=== PATIENT | female | born 1990 | race Caucasian/White ===

== ENCOUNTER 2022-08-21 13:36 | Inpatient (IN) | payer BC, OTHER ==
[2022-08-21] MEDS ORDERED: Nalbuphine HCl 10 MG/ 1ML Amp IVPUSH PRN (14:53)
[2022-08-21] MEDS ORDERED: Sodium Chloride 0.9% 10 ML Syringe FLUSH PRN (14:53)
[2022-08-21] MEDS ORDERED: Ondansetron 4 MG/2 ML SDV IVPUSH PRN (14:53)
[2022-08-21] MEDS ORDERED: Oxytocin/Lactated Ringers 10 UNIT/1,000 ML BAG IV SCH (15:00)
[2022-08-21] MEDS ORDERED: ceFAZolin 2 GM in Sodium Chloride 0.9% 50 ML IV ONE (15:15)
[2022-08-21] MEDS: Lactated Ringers 1,000 ML IV SCH ×2 (16:35→22:52)
[2022-08-21] MEDS: Oxytocin/Lactated Ringers 10 UNIT/1,000 ML BAG IV SCH (17:00)
[2022-08-22] MEDS ORDERED: Bupivacaine 0.25% 10 ML SDV ONE
[2022-08-22] MEDS: ceFAZolin 1 GM in Sodium Chloride 0.9% 50 ML IV SCH ×2 (00:24→09:25)
[2022-08-22] MEDS: Lactated Ringers 1,000 ML IV SCH ×2 (03:28→05:00)
[2022-08-22] MEDS ORDERED: Bupivacaine/fentaNYL/NS 100 ML Bag EPIDUR PRN (03:46)
[2022-08-22] MEDS ORDERED: ePHEDrine 50 MG/ML SDV IVPUSH PRN (03:46)
[2022-08-22] MEDS ORDERED: diphenhydrAMINE 50 MG/ML SDV IVPUSH PRN (03:46)
[2022-08-22] MEDS: fentaNYL 100 MCG/2 ML SDV EPIDUR PRN ×2 (04:09→04:24)
[2022-08-22] MEDS: Oxytocin/Lactated Ringers 10 UNIT/1,000 ML BAG IV SCH (07:17)
[2022-08-22] MEDS ORDERED: Docusate Sodium 100 MG Cap PO PRN (09:37)
[2022-08-22] MEDS ORDERED: Benzocaine/Menthol 20%-0.5% Spray 78 GM Cannister TOP PRN (09:37)
[2022-08-22] MEDS ORDERED: Witch Hazel Medicated Pads 40/Jar TOP PRN (09:37)
[2022-08-22] MEDS ORDERED: Acetaminophen 325 MG Tab PO PRN (09:37)
[2022-08-22] MEDS: Ibuprofen 600 MG Tab PO PRN ×2 (11:45→21:03)
[2022-08-22] MEDS: Sodium Chloride 0.9% 10 ML Syringe FLUSH SCH (12:22)
[2022-08-23] MEDS: Ibuprofen 600 MG Tab PO PRN (08:22)
[2022-08-23] MEDS ORDERED: Prenatal Multivitamin with Calcium/Folic Acid/Iron Tab PO SCH (09:00)
== END 2022-08-24 12:55 | disposition home or self-care (01) | DRG 560 ==
LOC: JD.OBCHECK 13:36 → JD.OB 13:38 → JD.OBCHECK 14:53 → JD.OB 08-22 07:48 → OBSVTOIN 08-22 09:29
PROVIDERS: ADMIT Obstetrics & Gynecology; ATTEND Obstetrics & Gynecology
PROC: 10E0XZZ Delivery of Products of Conception, External Approach (ICD-10-PCS; principal; 2022-08-22)
PROC: 0KQM0ZZ Repair Perineum Muscle, Open Approach (ICD-10-PCS; 2022-08-22)
PROC: 3E0R3BZ Introduction of Anesthetic Agent into Spinal Canal, Percutaneous Approach (ICD-10-PCS; 2022-08-22)
PROC: 00HU33Z Insertion of Infusion Device into Spinal Canal, Percutaneous Approach (ICD-10-PCS; 2022-08-22)
DX: O99.824 Streptococcus B carrier state complicating childbirth (principal); O99.284 Endocrine, nutritional and metabolic diseases complicating childbirth; O70.1 Second degree perineal laceration during delivery; Z37.0 Single live birth; E05.90 Thyrotoxicosis, unspecified without thyrotoxic crisis or storm; O99.62 Diseases of the digestive system complicating childbirth; K21.9 Gastro-esophageal reflux disease without esophagitis; Z3A.38 38 weeks gestation of pregnancy; Z88.0 Allergy status to penicillin; Z88.2 Allergy status to sulfonamides
CPT/HCPCS: 36415; 51701; 51702; 59025; 59409; 84112; 85025; 86592; A9270-GY; J0690; J2590; J3010; J3490; J7120

== ENCOUNTER 2024-03-13 17:11 | Inpatient (IN) | payer OTHER ==
[~2024-03-13 17:11] MED LIST: Bupivacaine 0.25% 10 ML SDV ONE
[2024-03-13] MEDS ORDERED: Ondansetron 4 MG/2 ML SDV IVPUSH PRN (18:48)
[2024-03-13] MEDS ORDERED: Lidocaine 1% 50 ML MDV INJECT PRN (18:48)
[2024-03-13] MEDS ORDERED: Nalbuphine 10 MG/ML Syringe IVPUSH PRN (18:48)
[2024-03-13] MEDS ORDERED: Oxytocin/Lactated Ringers 30 UNIT/500 ML BAG IV SCH (19:00)
[2024-03-13 19:17] LABS: BASOPHILS PERCENT AUTO 0.1 % (0.0-1.0); EOSINOPHILS ABSOLUTE AUTO 0.1 K/mm3 (0.0-0.4); EOSINOPHILS PERCENT AUTO 0.4 % (0.0-6.0); HEMOGLOBIN 12.8 gm/dl (12.0-16.0); IMMATURE GRAN ABSOLUTE AUTO 0.07 K/mm3 (0.00-0.05); IMMATURE GRAN PERCENT AUTO 0.6 % (0.0-0.4); LYMPHOCYTES ABSOLUTE AUTO 2.4 K/mm3 (1.0-4.8); LYMPHOCYTES PERCENT AUTO 19.5 % (24.0-44.0); MEAN CORPUSCULAR HEMOGLOBIN 29.3 pg (28.0-32.0); MEAN CORPUSCULAR HGB CONC 32.8 g/dl (32.0-36.0); MEAN CORPUSCULAR VOLUME 89.2 fl (83.0-99.0); MEAN PLATELET VOLUME 10.7 fl (9.4-12.3); MONOCYTES ABSOLUTE AUTO 0.9 K/mm3 (0.0-0.8); MONOCYTES PERCENT AUTO 7.6 % (0.0-8.0); NEUTROPHILS ABSOLUTE AUTO 8.8 K/mm3 (1.8-7.7); NEUTROPHILS PERCENT AUTO 71.8 % (41.0-71.0); PLATELET COUNT,PLT 261 K/mm3 (150-400); RED BLOOD CELL COUNT 4.37 M/mm3 (4.10-5.30); WHITE BLOOD CELL COUNT,WBC 12.23 K/mm3 (3.9-11.3)
[2024-03-13] MEDS ORDERED: ePHEDrine 50 MG/ML SDV IVPUSH PRN (20:01)
[2024-03-13] MEDS ORDERED: diphenhydrAMINE 50 MG/ML SDV IVPUSH PRN (20:01)
[2024-03-13] MEDS ORDERED: Calcium Carbonate 500 MG Tab.Chew PO PRN (20:23)
[2024-03-13] MEDS ORDERED: Acetaminophen 325 MG Tab PO PRN (20:23)
[2024-03-13] MEDS: Oxytocin/Lactated Ringers 30 UNIT/500 ML BAG IV SCH (20:55)
[2024-03-13] MEDS: Lactated Ringers 1,000 ML IV SCH (20:55)
[2024-03-14] MEDS: Bupivacaine/fentaNYL/NS 100 ML Bag EPIDUR PRN (00:42)
[2024-03-14] MEDS: fentaNYL 100 MCG/2 ML SDV EPIDUR PRN (00:43)
[2024-03-14] MEDS: Witch Hazel Medicated Pads 40/Jar TOP PRN (05:13)
[2024-03-14] MEDS: Benzocaine/Menthol 20%-0.5% Spray 78 GM Cannister TOP PRN (05:13)
[2024-03-14] MEDS: Acetaminophen 325 MG Tab PO SCH (05:35)
[2024-03-14] MEDS: Ibuprofen 600 MG Tab PO PRN (13:34)
== END 2024-03-15 14:30 | disposition home or self-care (01) | DRG 807 ==
LOC: JD.OBCHECK 17:11 → JD.OB 18:49 → OBSVTOIN 03-14 02:24 → JD.OB 03-14 02:25
PROVIDERS: ADMIT Obstetrics & Gynecology; ATTEND Obstetrics & Gynecology
PROC: 10E0XZZ Delivery of Products of Conception, External Approach (ICD-10-PCS; principal; 2024-03-14)
PROC: 0KQM0ZZ Repair Perineum Muscle, Open Approach (ICD-10-PCS; 2024-03-14)
PROC: 10907ZC Drainage of Amniotic Fluid, Therapeutic from Products of Conception, Via Natural or Artificial Opening (ICD-10-PCS; 2024-03-14)
PROC: 3E033VJ Introduction of Other Hormone into Peripheral Vein, Percutaneous Approach (ICD-10-PCS; 2024-03-14)
PROC: 3E0R3BZ Introduction of Anesthetic Agent into Spinal Canal, Percutaneous Approach (ICD-10-PCS; 2024-03-14)
PROC: 00HU33Z Insertion of Infusion Device into Spinal Canal, Percutaneous Approach (ICD-10-PCS; 2024-03-14)
DX: O48.0 Post-term pregnancy (principal); Z37.0 Single live birth; O70.1 Second degree perineal laceration during delivery; Z3A.40 40 weeks gestation of pregnancy; Z98.890 Other specified postprocedural states
CPT/HCPCS: 36415; 51702; 59025; 59409; 84112; 85025; 86592; 86850; 86900; 86901; A9270-GY; J0665; J3010; J3490; J7120; J7999